=== PATIENT | male | born 1990 | race Caucasian/White ===

== ENCOUNTER 2017-06-03 16:27 | Emergency (ER) | payer OTHER ==
[2017-06-03] MEDS ORDERED: SODIUM CHLORIDE 0.9% 1,000 ML IV STA ×2 (16:36)
[2017-06-03] MEDS ORDERED: DIPH,PERTUS(ACELL)TETVAC-LF 0.5 ML VIAL IM ONE (16:36)
[2017-06-03] MEDS ORDERED: RX INFO: IV CONTRAST WAS GIVEN 1 EACH MISC MISCELLANE PRN ×2 (16:36→16:42)
[2017-06-03] MEDS ORDERED: ceFAZolin 1,000 MG in DEXTROSE/WATER 1 50ML.BAG IVPB STA (16:36)
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
[2017-06-03 16:53] LABS: Basophils % (A) 0 %; CH 32.8; CHCM 34.9; Eosinophils # (A) 0.3 k/uL (0-0.7); Eosinophils % (A) 3 %; HCT 44.8 % (39.0-53.0); HDW 2.37; HGB 15.9 gm/dL (13.0-17.5); Luc # (Auto) 0.27; Luc % (Auto) 3; Lymphocytes # (A) 3.6 k/uL (1.0-4.8); Lymphocytes % (A) 37 %; MCH 33.6 pg (25.0-35.0); MCHC 35.6 g/dL (31.0-37.0); MCV 94.5 fL (80.0-100.0); Monocytes # (A) 0.5 k/uL (0-1.0); Monocytes % (A) 5 %; Neutrophils % (A) 52 %; RBC 4.75 m/uL (4.30-5.90); RDW 12.6 % (11.5-15.5); WBC 9.7 k/uL (3.8-10.6)
[2017-06-03 16:55] LABS: VBG PH 7.39 (7.31-7.41)
[2017-06-03 17:00] LABS: Partial Thromboplastin Time 25.2 sec (22.0-30.0); Prothrombin Time 10.3 sec (9.0-12.0)
[2017-06-03 17:05] LABS: ALT 38 U/L (21-72); AST 51 U/L (17-59); Alcohol <10 mg/dL; Alkaline Phosphatase 72 U/L (38-126); Amylase 45 U/L (30-110); Anion Gap 9 mmol/L; Blood Urea Nitrogen 12 mg/dL (9-20); Calcium 9.8 mg/dL (8.4-10.2); Carbon Dioxide 23 mmol/L (22-30); Chloride 105 mmol/L (98-107); Glucose 146 mg/dL (74-99); Non-African American GFR(MDRD) >60 (>60 ml/min/1.73 sqM); Potassium 4.6 mmol/L (3.5-5.1); Sodium 137 mmol/L (137-145); Total Bilirubin 0.5 mg/dL (0.2-1.3); Total Protein 7.3 g/dL (6.3-8.2)
[2017-06-03] MEDS ORDERED: HYDROmorphone 1 MG/ML 1 ML SYRINGE IVP STA ×2 (17:16→17:24)
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
[2017-06-03 17:34] LABS: Appearance,Urine Cloudy (Clear); Bacteria,Urine Rare /hpf; Bilirubin,Urine Negative (Negative); Glucose,Urine (UA) Trace (Negative); Ketones,Urine Negative (Negative); Leukocyte Esterase,Urine Negative (Negative); Mucus,Urine Rare /hpf; Nitrite,Urine Negative (Negative); Particle Count 11570; Protein,Urine 3+ (Negative); RBC,Urine 87 /hpf (0-5); Specific Gravity,Urine 1.022 (1.001-1.035); UA Billing (MACRO vs. MICRO) MICRO; Urobilinogen,Urine <2.0 mg/dL (<2.0); WBC,Urine 16 /hpf (0-5)
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
[2017-06-03 17:47] LABS: Creatine Kinase 296 U/L (55-170)
[2017-06-03 17:59] LABS: Creatine Kinase MB 1.1 ng/mL (0.0-2.4); Troponin I <0.012 ng/mL (0.000-0.034)
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
--- NOTE | 2017-06-03 18:04 | XR ---
EXAMINATION TYPE: XR tibia fibula LT DATE OF EXAM: 06/03/2017 COMPARISON: NONE HISTORY: Leg pain TECHNIQUE: 4 views FINDINGS: There is a nondisplaced fracture of the tibial spines. There is no dislocation. Distal tibi a and fibula appear intact. IMPRESSION: Fracture of the tibial spines.
--- NOTE | 2017-06-03 18:05 | XR ---
EXAMINATION TYPE: XR foot limited LT DATE OF EXAM: 06/03/2017 COMPARISON: NONE HISTORY: Foot pain TECHNIQUE: 2 views FINDINGS: There is limited visualization of the toes. There is soft tissue loss involving the fourth and fifth toes consistent with significant laceration. I see no fracture. The metatarsals are intact. IMPRESSION: Laceration deformities of the fourth and fifth toes.
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
[2017-06-03] MEDS ORDERED: ONDANSETRON 4 MG/2 ML VIAL IVP STA (18:09)
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
[2017-06-03 19:00] VITALS: BP 137/73; PULSE 45; RESP 14; TEMP 95.6
[2017-06-05 05:12] LABS: Glucose,Whole Blood 148 mg/dL (75-99)
== END 2017-06-03 18:25 | disposition short-term general hospital (02) ==
LOC: EC 16:27
DX: S82.145A Nondisplaced bicondylar fracture of left tibia, initial encounter for closed fracture (principal); S72.352A Displaced comminuted fracture of shaft of left femur, initial encounter for closed fracture; S82.042A Displaced comminuted fracture of left patella, initial encounter for closed fracture; S98.212A Complete traumatic amputation of two or more left lesser toes, initial encounter; S01.112A Laceration without foreign body of left eyelid and periocular area, initial encounter; R00.0 Tachycardia, unspecified; Z23 Encounter for immunization; R40.2412 Glasgow coma scale score 13-15, at arrival to emergency department; V23.4XXA Motorcycle driver injured in collision with car, pick-up truck or van in traffic accident, initial encounter; Y93.55 Activity, bike riding
CPT/HCPCS: 99291; 96365; 90471; 96375 ×2; 96376; 96361; 36415; 86900; 86901; 80053; 82150; 82550; 82553; 82803; 83605; 83690; 84484; 85025; 85610; 85730; 86850; 81001; 80306; 80320; 71010; 72170; 73552; 73590; 73600; 73620; 72125; 70486; 70450; 71260; 74177; 73701; 90715; J2405; J1170; Q9967; J0690